=== PATIENT | male | born 1985 | race Two or more races ===

== ENCOUNTER 2021-02-02 21:03 | Emergency (ER) | payer MEDICAID ==
[~2021-02-02] VITALS: Ht 167.6 cm; Wt 72.6 kg
--- NOTE | 2021-02-02 21:15 | NUR ---
PT BIBS FOR C/O L SIDED CP ONSET 3-4 HOURS AGO S/P TAKING 100MG OF METHADONE. PATIENT IS A/OX4, NO SIGNS OF SOB. PATIENT V/S WNL. PATIENT CONNCETED TO TESTING TECH AND POX. EKG BEING DONE AT BEDSIDE.
[2021-02-02] MEDS ORDERED: BACLOFEN (10 MG) 10 MG TABLET PO ONE (21:30)
[2021-02-02] MEDS ORDERED: CLONIDINE HCL 0.1 MG TABLET PO ONE (21:30)
[2021-02-02] MEDS ORDERED: diphenhydrAMINE HCL 50 MG/ML VIAL IV ONE (21:30)
[2021-02-02] MEDS ORDERED: KETOROLAC TROMETHAMINE INJ 30 MG/ML VIAL IV ONE (21:30)
[2021-02-02] MEDS ORDERED: IV NS 0.9% 1,000 ML BAG IV ONE (21:30)
[2021-02-02] MEDS ORDERED: diphenhydrAMINE HCL 50 MG/ML VIAL ONE (21:43)
[2021-02-02] MEDS ORDERED: CLONIDINE HCL 0.1 MG TABLET ONE (21:44)
[2021-02-02] MEDS ORDERED: KETOROLAC TROMETHAMINE 15 MG/ML VIAL ONE (21:44)
[2021-02-02] MEDS ORDERED: BACLOFEN (10 MG) 10 MG TABLET ONE (21:44)
[2021-02-02 21:47] LABS: BASOPHILS % (AUTO) 0.4 % (0.0-2.0); EOSINOPHILS % (AUTO) 0.3 % (0.0-6.0); HEMATOCRIT 46 % (39-51); HEMOGLOBIN 15.6 g/dL (13.5-17.5); LYMPHOCYTES # (AUTO) 1.8 /CMM (0.8-4.8); LYMPHOCYTES % (AUTO) 14.3 % (20.0-44.0); MEAN CORPUSCULAR HGB CONC 34 g/dl (31.0-36.0); MEAN CORPUSCULAR VOLUME 89 fL (80-96); MONOCYTES # (AUTO) 0.8 /CMM (0.1-1.30); MONOCYTES % (AUTO) 6.2 % (2.0-12.0); NEUTROPHILS # (AUTO) 10.1 /CMM (1.8-8.9); NEUTROPHILS % (AUTO) 78.8 % (43.0-81.0); PLATELET COUNT (AUTO) 237 /CMM (150-450); RED BLOOD CELL COUNT(AUTO) 5.18 MIL/uL (4.5-6.0); WHITE BLOOD COUNT (AUTO) 12.8 K/uL (4.3-11.0)
[2021-02-02 22:01] LABS: ALANINE AMINOTRANSFERASE 37 U/L (12-78); ALBUMIN 4.2 g/dL (3.4-5.0); ALKALINE PHOSPHATASE 69 U/L (46-116); ASPARTATE AMINOTRANSFERASE 19 U/L (15-37); BILIRUBIN,DIRECT 0.2 mg/dL (0.0-0.2); BILIRUBIN,TOTAL 0.8 mg/dL (0.2-1.0); CALCIUM, SERUM 9.6 mg/dL (8.5-10.1); CARBON DIOXIDE 25 mmol/L (21-32); CHLORIDE 102 mmol/L (98-107); CREATININE 0.9 mg/dL (0.6-1.3); GLUCOSE 113 mg/dL (74-106); LIPASE 33 U/L (73-393); POTASSIUM 3.6 mmol/L (3.5-5.1); SODIUM SERUM 138 mmol/L (136-145); TOTAL PROTEIN, SERUM 7.8 g/dL (6.4-8.2); UREA NITROGEN, BLOOD 14 mg/dL (7-18)
[2021-02-02] MEDS ORDERED: CLON1PAT TD (22:40)
[2021-02-02] MEDS ORDERED: DIPH50CA4 PO (22:40)
[2021-02-02] MEDS ORDERED: BACL10TA PO (22:40)
[2021-02-02] MEDS ORDERED: NALO4SPR NS (22:45)
--- NOTE | 2021-02-02 22:58 | NUR ---
Patient is ambulatory with a steady gait.
--- NOTE | 2021-02-02 22:58 | NUR ---
Patient discharged to home in stable condition. Written and verbal after care instructions given. Patient verbalizes understanding of instruction.
--- NOTE | 2021-02-02 22:58 | NUR ---
IV removed. Catheter intact and site benign. Pressure and 4x4 applied to site. No bleeding noted.
[2021-02-02 23:06] VITALS: BP 132/67
== END 2021-02-02 23:07 | disposition home or self-care (01) ==
LOC: ER 21:06
DX: F11.23 Opioid dependence with withdrawal (principal); R07.89 Other chest pain; K59.00 Constipation, unspecified; F17.200 Nicotine dependence, unspecified, uncomplicated; R53.1 Weakness; Z60.2 Problems related to living alone; Z79.899 Other long term (current) drug therapy
CPT/HCPCS: 36415; 71045; 74018; 80048; 80076; 83690; 84484; 85025; 93005 ×2; 96361; 96374; 96375; 99285; 99406; J1200; J1885